=== PATIENT | female | born 1995 | race Caucasian/White ===

== ENCOUNTER 2018-03-16 10:36 | Emergency (ER) | payer SELFPAY ==
[2018-03-16 11:33] VITALS: BP 112/53
--- NOTE | 2018-03-16 11:50 | UC ---
UC General HPI - HPI Summary HPI Summary: 3 DAY HX BUMP UNDER l JAW. FIGURED IT WAS A PIMPLE BUT NOW DEEPER AND MORE SWOLLEN. HAD A URI AND GI BUG WITHIN THE PAST 2 WEEKS BUT BOTH RESOLVED. - History of Current Complaint Chief Complaint: UCGeneralIllness Stated Complaint: ORAL/FACIAL COMPLAINT Time Seen by Provider: 03/16/18 11:28 Hx Obtained From: Patient Hx Last Menstrual Period: 09/14/13 Onset/Duration: Gradual Onset Timing: Constant Pain Intensity: 1 Aggravating: NOTHING Associated Signs & Symptoms: Negative: Fever - Allergy/Home Medications Allergies/Adverse Reactions: Allergies Allergy/AdvReac Type Severity Reaction Status Date / Time No Known Allergies Allergy Verified 03/16/18 11:29 Home Medications: Home Medications Ibuprofen TAB* [Advil TAB*] 800 mg PO Q8H PRN 03/16/18 [History Confirmed ] PMH/Surg Hx/FS Hx/Imm Hx Previously Healthy: Yes - Surgical History Surgical History: Yes Surgery Procedure, Year, and Place: Tonsillectomy, ~2003, [place] - Family History Known Family History: Positive: Diabetes - Social History Occupation: Employed Full-time Lives: With Family Alcohol Use: None Substance Use Type: Marijuana Substance Use Comment - Amount & Last Used: Daily & 03/15/18 Smoking Status (MU): Light Every Day Tobacco Smoker Type: eCigarettes When Did the Patient Quit Smoking/Using Tobacco: Since Age 18 Household Exposure Type: Cigarettes - Immunization History Vaccination Up to Date: Yes Review of Systems Constitutional: Negative Skin: Negative Eyes: Negative ENT: Negative Respiratory: Negative Cardiovascular: Negative Gastrointestinal: Negative Genitourinary: Negative Motor: Negative Neurovascular: Negative Musculoskeletal: Negative Neurological: Negative Psychological: Negative Is Patient Immunocompromised?: No All Other Systems Reviewed And Are Negative: Yes Physical Exam Triage Information Reviewed: Yes Appearance: Well-Appearing Vital Signs: Initial Vital Signs Temp 97.2 F 03/16/18 11:27 Pulse 80 03/16/18 11:27 Resp 16 03/16/18 11:27 BP 112/53 03/16/18 11:27 Pulse Ox 100 03/16/18 11:27 Vital Signs Reviewed: Yes Eyes: Positive: Conjunctiva Clear ENT: Positive: Pharynx normal, TMs normal, Uvula midline, Other - Swelling L submandibular gland.. Negative: Nasal congestion, Nasal drainage, Tonsillar swelling, Tonsillar exudate, Trismus, Muffled voice, Hoarse voice Neck: Positive: Supple, Nontender, No Lymphadenopathy Respiratory: Positive: Lungs clear, Normal breath sounds Cardiovascular: Positive: RRR, No Murmur Abdomen Description: Positive: Nontender, No Organomegaly, Soft Bowel Sounds: Positive: Present Musculoskeletal: Positive: ROM Intact Neurological: Positive: Alert Psychological: Positive: Age Appropriate Behavior Skin Exam: Normal Skin: Negative: rashes Course/Dx - Course Course Of Treatment: no concern for ludwigs angina - Differential Dx - Multi-Symptom Provider Diagnoses: Sialoadenitis Discharge - Sign-Out/Discharge Documenting (check all that apply): Patient Departure All imaging exams completed and their final reports reviewed: No Studies - Discharge Plan Condition: Stable Disposition: HOME Prescriptions: Cephalexin CAP* [Keflex CAP*] 500 mg PO TID 7 Days #21 cap Patient Education Materials: Sialoadenitis (ED) Referrals: Anthony Panda MD [Medical Doctor] - Additional Instructions: CALL TOMORROW TO BE SEEN THIS SATURDAY IN [place]. SUCK ON [employer] TO [employer]. - Billing Disposition and Condition Condition: STABLE Disposition: Home
== END 2018-03-16 11:58 | disposition home or self-care (01) ==
LOC: UCCORT 10:36
DX: K11.20 Sialoadenitis, unspecified (principal); F17.210 Nicotine dependence, cigarettes, uncomplicated
CPT/HCPCS: 99202; G0463